=== PATIENT | female | born 1940 | race Caucasian/White ===

== ENCOUNTER → 2020-07-14 | Day surgery (SDC) | payer MEDICARE ==
[~2020-07-14] VITALS: Ht 154.9 cm; Wt 56.7 kg
[~2020-07-14] MED LIST: COZAAR 100MG T100 MG PO; DERMACINRX5000 UNI1 PO; NORCO 5-325 TA1 EACH PO; OS-CAL500 MG PO; TIMOPTIC5 M1 OU
== END | disposition home or self-care (01) ==
LOC: FAS 06-23 08:00
DX: K64.8 Other hemorrhoids (principal); K64.4 Residual hemorrhoidal skin tags; I10 Essential (primary) hypertension; M81.0 Age-related osteoporosis without current pathological fracture; Z20.822 Contact with and (suspected) exposure to COVID-19; Z90.710 Acquired absence of both cervix and uterus; Z90.49 Acquired absence of other specified parts of digestive tract; Z98.890 Other specified postprocedural states
CPT/HCPCS: J0694; J1100; J1885; J2250; J2405; J2704; J3010; J7120

== ENCOUNTER 2020-11-07 10:18 | Emergency (ER) | payer MEDICARE | END 2020-11-07 12:18 | disposition home or self-care (01) | LOC: FER 10:18 | DX: S01.01XA Laceration without foreign body of scalp, initial encounter (principal); Z23 Encounter for immunization; W11.XXXA Fall on and from ladder, initial encounter; Y92.009 Unspecified place in unspecified non-institutional (private) residence as the place of occurrence of the external cause | CPT/HCPCS: 70450; 90471; 90715 ==